=== PATIENT | male | born 1970 | race Caucasian/White ===

== ENCOUNTER 2018-12-01 08:57 | Emergency (ER) | payer MEDICARE, BC ==
[~2018-12-01] VITALS: Ht 167.6 cm; Wt 72.0 kg
[2018-12-01 09:07] VITALS: BP 143/88
[2018-12-01] MEDS ORDERED: AMOX-580 PO (09:16)
== END 2018-12-01 09:23 | disposition home or self-care (01) ==
LOC: ER 08:58
DX: H66.92 Otitis media, unspecified, left ear (principal); Z88.1 Allergy status to other antibiotic agents; Z79.899 Other long term (current) drug therapy
CPT/HCPCS: 99284

== ENCOUNTER 2019-06-02 09:33 | Emergency (ER) | payer MEDICARE, BC ==
[~2019-06-02] VITALS: Ht 167.6 cm; Wt 80.0 kg
[2019-06-02 09:46] VITALS: BP 130/63
[2019-06-02 12:10] LABS: BASOPHILS # (AUTO) 0.1 X10'3 (0-0.2); BASOPHILS % (AUTO) 1.3 % (0-1); EOSINOPHILS # (AUTO) 0.1 X10'3 (0-0.9); EOSINOPHILS % (AUTO) 1.3 % (0-6); HEMATOCRIT 47.9 % (42.0-52.0); HEMOGLOBIN 16.2 g/dl (14.0-17.9); LYMPHOCYTES # (AUTO) 1.6 X10'3 (1.1-4.8); LYMPHOCYTES % (AUTO) 25.9 % (21-51); MEAN CORPUSCULAR HEMOGLOBIN 30.8 PG (27.0-31.0); MEAN CORPUSCULAR HGB CONC 33.7 g/dL (33.0-36.5); MEAN CORPUSCULAR VOLUME 91.2 FL (78-98); MEAN PLATELET VOLUME 8.1 FL (7.4-10.4); MONOCYTES # (AUTO) 0.4 X10'3 (0-0.9); MONOCYTES % (AUTO) 6.8 % (2-12); NEUTROPHILS # (AUTO) 3.9 X10'3 (1.8-7.7); NEUTROPHILS % (AUTO) 64.7 % (42-75); PLATELET COUNT 276 X10'3 (140-440); RED BLOOD COUNT 5.26 X10'6 (4.70-6.10); RED CELL DISTRIBUTION WIDTH 12.7 % (11.5-14.5); WHITE BLOOD COUNT 6.1 X10'3 (4.5-11.0)
[2019-06-02 12:27] LABS: ALANINE AMINOTRANSFERASE 24 U/L (12-78); ALBUMIN 4.5 G/DL (3.4-5.0); ALBUMIN/GLOBULIN RATIO 1.2 (1.1-1.5); ALKALINE PHOSPHATASE 98 IU/L (46-116); ANION GAP 10 (8-16); ASPARTATE AMINO TRANSFERASE 15 U/L (10-37); BILIRUBIN,TOTAL 0.4 MG/DL (0.1-1.0); BLOOD UREA NITROGEN 14 MG/DL (7-18); BUN/CREATININE RATIO 14.7 (5.4-32.0); CALCIUM 9.1 MG/DL (8.5-10.1); CHLORIDE 106 MMOL/L (99-107); CREATININE 0.95 MG/DL (0.60-1.10); GLUCOSE 99 MG/DL (70-104); POTASSIUM 4.3 MMOL/L (3.5-5.1); SODIUM 144 MMOL/L (135-145); TOTAL CARBON DIOXIDE 28.5 MMOL/L (24-32); TOTAL PROTEIN 8.4 G/DL (6.4-8.2); eGFR 85 ML/MIN
[2019-06-02] MEDS ORDERED: DOXY100C43 PO (13:05)
[2019-06-02] MEDS ORDERED: SULF1TAB49 PO (14:05)
== END 2019-06-02 14:09 | disposition home or self-care (01) ==
LOC: ER 09:34
DX: J01.90 Acute sinusitis, unspecified (principal); F32.9 Major depressive disorder, single episode, unspecified; R79.1 Abnormal coagulation profile; Z88.1 Allergy status to other antibiotic agents; Z79.899 Other long term (current) drug therapy
CPT/HCPCS: 36415; 70480; 80053; 85025; 85610; 99284

== ENCOUNTER 2023-08-10 14:56 | Emergency (ER) | payer BC, MEDICARE ==
[~2023-08-10] VITALS: Ht 167.6 cm; Wt 88.6 kg
[2023-08-10] MEDS ORDERED: dexamethasone sod phosphate 10mg/ml inj IV STA (15:31)
[2023-08-10] MEDS ORDERED: ondansetron/PF 4mg/2ml inj IV ONE (15:35)
[2023-08-10] MEDS ORDERED: morphine 4 MG/ML inj SYRINge IV ONE (15:35)
[2023-08-10 16:26] LABS: BASOPHILS # (AUTO) 0.1 X10'3 (0-0.2); HEMOGLOBIN 15.3 g/dl (14.0-17.9)
[2023-08-10 16:28] LABS: BASOPHILS % (AUTO) 1.2 % (0-1); EOSINOPHILS # (AUTO) 0.1 X10'3 (0-0.9); EOSINOPHILS % (AUTO) 1.5 % (0-6); HEMATOCRIT 45.4 % (42.0-52.0); LYMPHOCYTES # (AUTO) 2.1 X10'3 (1.1-4.8); LYMPHOCYTES % (AUTO) 26.4 % (21-51); MEAN CORPUSCULAR HEMOGLOBIN 30.9 PG (27.0-31.0); MEAN CORPUSCULAR HGB CONC 33.7 g/dL (33.0-36.5); MEAN CORPUSCULAR VOLUME 91.8 FL (78-98); MEAN PLATELET VOLUME 7.5 FL (7.4-10.4); MONOCYTES # (AUTO) 0.7 X10'3 (0-0.9); MONOCYTES % (AUTO) 8.4 % (2-12); NEUTROPHILS % (AUTO) 62.5 % (42-75); PLATELET COUNT 297 X10'3 (140-440); RED BLOOD COUNT 4.95 X10'6 (4.70-6.10); RED CELL DISTRIBUTION WIDTH 13.1 % (11.5-14.5)
[2023-08-10 16:40] LABS: ALANINE AMINOTRANSFERASE 38 U/L (12-78); ALBUMIN 3.7 G/DL (3.4-5.0); ALBUMIN/GLOBULIN RATIO 1.2 (1.1-1.5); ALKALINE PHOSPHATASE 90 IU/L (46-116); ANION GAP 11 (8-16); ASPARTATE AMINO TRANSFERASE 17 U/L (10-37); BILIRUBIN,TOTAL 0.4 MG/DL (0.1-1.0); BLOOD UREA NITROGEN 16 MG/DL (7-18); BUN/CREATININE RATIO 16.5 (10.0-20.0); CALCIUM 9.1 MG/DL (8.5-10.1); CHLORIDE 105 MMOL/L (99-107); CREATININE 0.97 MG/DL (0.60-1.10); GLUCOSE 92 MG/DL (70-104); POTASSIUM 3.9 MMOL/L (3.5-5.1); SODIUM 139 MMOL/L (135-145); TOTAL CARBON DIOXIDE 23.3 MMOL/L (24-32); TOTAL PROTEIN 6.8 G/DL (6.4-8.2); eCRCL 81 ML/MIN; eGFR 82 ML/MIN
[2023-08-10] MEDS ORDERED: diazepam inj 5 MG/ML inj. IV ONE (16:45)
[2023-08-10 17:33] LABS: BILIRUBIN,URINE NEGATIVE (Neg); CLARITY,URINE CLEAR (Clear); COLOR,URINE STRAW (Yellow); GLUCOSE, URINE NEGATIVE (Neg); KETONES,URINE NEGATIVE (Neg); LEUKOCYTE ESTERASE ,URINE NEGATIVE (Neg); NITRITES, URINE NEGATIVE (Neg); OCCULT BLOOD,URINE NEGATIVE (Neg); PROTEIN,URINE NEGATIVE (Neg); UROBILINOGEN,URINE 0.2 E.U/dL (0.2-1.0)
[2023-08-10 17:34] LABS: UA COLLECTION TYPE CLN CATCH MIDSTREAM
[2023-08-10] MEDS ORDERED: CYCL-1 PO (18:45)
[2023-08-10] MEDS ORDERED: HYDR-3965 PO (18:45)
[2023-08-10] MEDS ORDERED: HYDROcodone/acetaminophen 5mg/325mg tablet PO ONE (18:45)
[2023-08-10] MEDS ORDERED: DOCU-171 PO (19:12)
[2023-08-10 19:14] VITALS: BP 135/77; PULSE 78; RESP 18; TEMP 98.3; O2SAT 98
== END 2023-08-10 19:21 | disposition home or self-care (01) ==
LOC: ER 14:57
DX: M48.061 Spinal stenosis, lumbar region without neurogenic claudication (principal); M54.50 Low back pain, unspecified; G89.29 Other chronic pain; R53.1 Weakness; Z98.890 Other specified postprocedural states; Z88.1 Allergy status to other antibiotic agents; Z88.8 Allergy status to other drugs, medicaments and biological substances; Z79.899 Other long term (current) drug therapy
CPT/HCPCS: 36415; 72148; 80053; 81003; 85025; 96374; 96375; 99285; J1100; J2270; J2405; J3360; 99284

== ENCOUNTER 2024-05-27 08:36 | Outpatient (CLI) | payer BC, MEDICARE ==
[~2024-05-27 08:36] MED LIST: CYCL-1 PO; DOCU-171 PO
== END 2024-05-27 23:59 | disposition home or self-care (01) ==
LOC: MRI02 08:36
PROVIDERS: ATTEND Pediatrics Sports Medicine
DX: M19.012 Primary osteoarthritis, left shoulder (principal); M89.312 Hypertrophy of bone, left shoulder; M75.42 Impingement syndrome of left shoulder; M25.512 Pain in left shoulder
CPT/HCPCS: 73221